=== PATIENT | male | born 1990 | race Caucasian/White ===

== ENCOUNTER 2020-03-07 11:18 | Observation (INO) | payer SELFPAY ==
[2020-03-07] VITALS (12 sets, daily range): BP systolic 138–157; BP diastolic 79–92; PULSE 62–90; RESP 12–24; TEMP 36.9; O2SAT 96–100; BMI 20.5
--- NOTE | 2020-03-07 11:26 | CT_ITS ---
WS: [id number] CT ABDOMEN AND PELVIS WITH AND WITHOUT CONTRAST HISTORY: Abdominal pain TECHNIQUE: Unenhanced 5 mm axial imaging first performed through the abdomen. Post contrast imaging t hrough the abdomen and pelvis. Oral contrast has not been provided. Sagittal and coronal reformats a re submitted. All CT scans at [facility] use at least one of these dose optimization tech niques: automated exposure control; mA and/or kV adjustment per patient size (includes targeted exams where dose is matched to clinical indication); or iterative reconstruction. CONTRAST: Omnipaque 300; 95 mL IV. DLP: 691.31 mGy.cm COMPARISON: None available. Lung bases are clear. Heart is normal size. No hiatal hernia. Mild hepatic steatosis and enlargement. No mass or bile duct dilatation. Normally distended gallbladd er. Pancreas is enlarged and edematous. Spleen is negative. No adrenal mass. Negative kidneys. Aorta is normal. There is a small amount of ascites within the abdomen. Ascites extends along the paracolic gutters wi th a small amount of fluid in the pelvis. There is also soft tissue infiltration throughout the mesen teric fat. There is no focal fluid collection or abscess. No GI tract obstruction. The appendix is pa rtially visualized but normal. No osseous abnormality. Benign bone islands in the pelvis and proximal femur. CT/CT abdomen pelvis wo/w [id number] IMPRESSION: 1. Acute pancreatitis without evidence for hemorrhagic pancreatitis or necrosi s. 2. Small amount of ascites and diffuse mesenteric edema. 3. No bile duct dilatation.
--- NOTE | 2020-03-07 11:34 | W.ED.ABDPA2 ---
HPI - Abdominal Pain General: Chief Complaint: Abdominal Pain Stated Complaint: SEVERE ABD PAIN Time Seen by Provider: 03/07/20 11:20 Source: patient Mode of arrival: EMS Limitations: no limitations History of Present Illness: HPI narrative: Myke is a nice 29-year-old male who comes in complaining of abdominal pain. Abdominal pain is been present for the past 3 days and worsening progressively for the throughout that time. He describes the pain is diffuse in nature but worse in the right lower quadrant. He has had associated nausea and vomiting but denies any hematic emesis or coffee-ground emesis. He denies diarrhea but states he has not had a bowel movement in these past 3 days. He has had a decreased appetite and a subjective fever at home. Any type of getting up and moving or exertion makes his symptoms worse. [facility] and the concern for appendicitis was present and he was referred here for a CT scan to better evaluate. Associated Symptoms: Reports fever(s) (Subjective), nausea and vomiting; Denies chills, coffee ground emesis, GI cramping, diarrhea, dysuria, heartburn, hematochezia, hematuria, hematemesis, melena and syncope Review of Systems Const: Reports: fever(s) (Subjective); Denies: chills, body aches, fatigue, malaise or diaphoresis Eyes: Denies: change in vision, blurry vision, blind spots, photophobia, eye discharge or eye redness ENMT: Denies: throat pain, odynophagia, hoarseness, swelling of lips/tongue, oral sores, ear or mastoid pain, ear discharge, change in hearing or nasal discharge Card: Denies: chest pain, palpitations, irregular heart rhythm, edema, lightheadedness, syncope, pre-syncope, dyspnea on exertion or orthopnea Resp: Denies: dyspnea, productive cough, non-productive cough, wheezing, hemoptysis or chest congestion GI: Reports: abdominal pain, nausea and vomiting; Denies: hematemesis, coffee ground emesis, heartburn, diarrhea, GI cramping, hematochezia or melena : Denies: flank pain, dysuria, urinary frequency, urinary urgency or hematuria Musc: Denies: neck pain, back pain, extremity pain, extremity swelling, joint pain, joint swelling, joint redness, joint warmth or joint stiffness Skin/Breast: Denies: rash, pruritus, erythema, skin tenderness or jaundice Neuro: Denies: headache(s), numbness in extremities, weakness in extremities, sensory changes, lack of coordination, difficulty walking, dizziness, vertigo, confusion, Slurred speech present or seizure-like activity Thony/Lymph: Denies: easy bruising, easy bleeding, petechiae, purpura or enlarged lymph nodes All/Imm: Denies: urticaria, throat swelling, tongue swelling, facial swelling or acute wheezing PFSH ED PFSH: Medical History (Updated 03/07/20 @ 15:42 by Callum Mallory MD) Acute abdominal pain No pertinent past medical history Surgical History (Updated 03/07/20 @ 15:41 by Callum Mallory MD) No pertinent past surgical history Family History (Updated 03/07/20 @ 15:41 by Callum Mallory MD) Other Lung disease Social History Smoking and tobacco status: current every day smoker Alcohol intake: never Physical Exam Const: COMMON NORMALS: no acute distress, patient oriented x3, no limitations, healthy appearing and well nourished GENERAL APPEARANCE: cooperative, well kempt and well developed HENMT: COMMON NORMALS: normocephalic, atraumatic, external ears normal, EAC's normal and Normal external nose present HEAD & SCALP: normal to inspection, normocephalic and atraumatic FACE & SINUS: normal facial exam and face symmetric NOSE: Normal external nose present and Normal nares present EXTERNAL EAR: Yes external ears normal EXTERNAL AUDITORY CANAL: EAC's normal MOUTH: Normal oral and palatal mucosa present, lip normal and tongue normal Eye: COMMON NORMALS: Equal, round and reactive pupils present and conjunctivae normal GENERAL EYE: appearance normal, both eyes and all related structures ALIGNMENT: Yes alignment normal PERIORBITAL: periorbital findings normal EYELID: eyelids normal CONJUNCTIVA: Yes conjunctivae normal SCLERA: sclerae normal PUPIL: Yes Equal, round and reactive pupils present Neck/C-Spine: COMMON NORMALS: full ROM, no lymphadenopathy, supple, no meningeal signs and no JVD GENERAL: Yes normal visual inspection and Yes trachea midline Chest: COMMONS NORMALS: normal inspection of the chest and normal palpation of entire chest wall Resp: COMMON NORMALS: normal respiratory effort, No retractions and No use of accessory muscles EFFORT & INSPECTION: Yes able to speak in complete sentences and Yes symmetric chest movement AUSCULTATION: no crackles, no rales, no rhonchi and no wheezes Cardio: COMMON NORMALS: no JVD, regular rate, regular rhythm, S1 normal heart sound present and S2 normal heart sound present RATE: regular rate RHYTHM: regular rhythm HEART SOUNDS: S1 normal heart sound present, S2 normal heart sound present, no click, no gallops, no murmurs, no rubs and abnormal split S2 GI: COMMON NORMALS: Soft to palpation and No hepatosplenomegaly present PALPATION: Yes Soft to palpation, Yes Tenderness to palpation present (GI) (Moderate diffusely), No Guarding due to palpation present (GI), No Rigid due to palpation, Yes No hepatosplenomegaly present, No Hernia present, No Palpable mass present and No Pulsatile mass present : COMMON NORMALS: Yes no CVA tenderness BLADDER/KIDNEY EXAM: Yes no CVA tenderness Back/Pelvis: COMMON NORMALS: no CVA tenderness, thoracic and lumbar spine normal to inspection, no thoracic nor lumbar tenderness and thoraco-lumbar ROM normal Extremity: COMMON NORMALS: normal to inspection, full ROM, capillary refill normal, no joint enlargement, no clubbing, cyanosis or edema and no calf tenderness Neuro: COMMON NORMALS: patient oriented x3, CN's II-XII intact bilaterally, moves all extremities, no focal motor deficits and no sensory deficits noted MENINGEAL SIGNS: Yes no meningeal signs SPEECH: speech normal Psych: COMMON NORMALS: mental status grossly normal, Normal thought process present, cooperative, normal affect, speech normal and activity/motor behavior normal APPEARANCE: Yes well kempt SPEECH: Yes normal speech THOUGHT PROCESS: Normal thought process present Skin: COMMON NORMALS: no rashes or lesions noted, turgor normal, no jaundice, no petechiae and no mottling GENERAL SKIN EXAM: no rashes or lesions noted and turgor normal Course Vital Signs: Vital signs: Vital Signs Temperature 98.4 F 03/07/20 15:18 Pulse Rate 62 03/07/20 15:18 Respiratory Rate 18 03/07/20 15:18 Blood Pressure 151/86 03/07/20 15:18 Pulse Oximetry 99 03/07/20 15:18 MDM - Abdominal Pain MDM Narrative: Medical decision making narrative: Mr. Haley is a 29-year-old male comes in complaining of diffuse abdominal pain. He has associated nausea vomiting and has been constipated. CT scan does not reveal a bowel obstruction or appendicitis but does reveal pancreatitis. There is a small amount of ascites present. I have reviewed the case in full with Dr. Frost and he is agreeable to admission. He understands I am adding on an ultrasound to definitively rule out a gallbladder cause and muscle adding on alcohol and coagulation studies. Lab Data: Attestation: I reviewed the patient's lab results. Labs: Lab Results 03/07/20 03/07/20 03/07/20 Range/Units 11:40 11:40 11:40 WBC 18.6 H (4.0-10.0) 10^3/ uL RBC 5.95 H (4.1-5.3) 10^6/u L Hgb 17.6 H (11.7-16.6) g/dL Hct 52.7 H (42.0-52.0) % MCV 88.6 (80-94) fL MCH 29.6 (28.0-34.0) pg MCHC 33.4 (30.0-36.0) g/dL RDW 13.1 (12.1-15.1) % Plt Count 331 (130-400) 10^3/c mm MPV 8.9 (7.4-10.4) fL Neut % (Auto) 84.3 % Lymph % (Auto) 6.2 % [place] % (Auto) 8.1 % Eos % (Auto) 0.9 % Baso % (Auto) 0.2 % Neut # (Auto) 15.7 H (1.8-7.7) 10^3/u L Lymph # (Auto) 1.2 (0.8-4.8) 10^3/u L [place] # (Auto) 1.5 H (0.2-0.9) 10^3/u L Eos # (Auto) 0.2 (0.0-0.8) 10^3/u L Baso # (Auto) 0.0 (0.0-0.1) 10^3/u L Nucleated RBC % (a uto) 0 % Nucleated RBCs # 0.0 /100WBC PT (10.5-13.3) SECO NDS INR (0.8-1.2) APTT (23.9-36.7) SECO NDS Sodium 133 L (136-145) mmol/L Potassium 3.5 (3.5-5.1) mmol/L Chloride 96 L (98-107) mmol/L Carbon Dioxide 24 (22-29) mmol/L Anion Gap 16.5 (5-19) BUN 14 (6-20) mg/dL Creatinine 0.7 (0.7-1.2) mg/dL GFR Calculation 133.3 H (90-130) mL/min Glucose 115 (65-115) mg/dL Estimat Average Gl ucose Hemoglobin A1c (4.0-6.0) % Calculated Osmolal ity 273 L (285-295) mOsm/k g Lactic Acid (0.5-2.2) mmol/L Calcium 9.9 (8.5-10.5) mg/dL Magnesium 1.6 L (1.7-2.3) mg/dL Total Bilirubin 1.0 (0.15-1.2) mg/dL AST 99 H (0-40) U/L ALT 174 H (0-41) U/L Alkaline Phosphata se 86 (40-130) IU/L Total Protein 6.7 (6.6-8.7) g/dL Albumin 4.3 (3.5-5.2) g/dL Globulin 2.4 (1.3-4.6) g/dL Lipase 1185 H (13-60) U/L Urine Color (Yellow) Urine Appearance (CLEAR) Urine pH (5-7) Ur Specific Gravit y (1.005-1.030) Urine Protein (Negative) Urine Glucose (UA) (Normal) Urine Ketones (Negative) Urine Blood (Negative) Urine Nitrate (Negative) Urine Bilirubin (NEGATIVE) Urine Urobilinogen (Negative) mg/dL Ur Leukocyte Anastasiya ase (Negative) Urine RBC (0-2) /hpf Urine WBC (0-5) /hpf Ur Squamous Epith Cells (0-5) Urine Bacteria (NONE) Urine Mucus Urine Opiates Scre en (Negative) ng/mL Ur Barbiturates Sc reen (Negative) ng/mL Ur Phencyclidine S crn (Negative) ng/mL Ur Amphetamines Sc reen (Negative) ng/mL U Benzodiazepines Scrn (Negative) ng/mL Urine Cocaine Scre en (Negative) ng/mL U Marijuana (THC) Screen (Negative) ng/mL Ethyl Alcohol < 10 (0-10) mg/dL 03/07/20 03/07/20 03/07/20 Range/Units 11:40 11:40 11:50 WBC (4.0-10.0) 10^3/ uL RBC (4.1-5.3) 10^6/u L Hgb (11.7-16.6) g/dL Hct (42.0-52.0) % MCV (80-94) fL MCH (28.0-34.0) pg MCHC (30.0-36.0) g/dL RDW (12.1-15.1) % Plt Count (130-400) 10^3/c mm MPV (7.4-10.4) fL Neut % (Auto) % Lymph % (Auto) % [place] % (Auto) % Eos % (Auto) % Baso % (Auto) % Neut # (Auto) (1.8-7.7) 10^3/u L Lymph # (Auto) (0.8-4.8) 10^3/u L [place] # (Auto) (0.2-0.9) 10^3/u L Eos # (Auto) (0.0-0.8) 10^3/u L Baso # (Auto) (0.0-0.1) 10^3/u L Nucleated RBC % (a uto) % Nucleated RBCs # /100WBC PT 13.60 H (10.5-13.3) SECO NDS INR 1.01 (0.8-1.2) APTT 32.8 (23.9-36.7) SECO NDS Sodium (136-145) mmol/L Potassium (3.5-5.1) mmol/L Chloride (98-107) mmol/L Carbon Dioxide (22-29) mmol/L Anion Gap (5-19) BUN (6-20) mg/dL Creatinine (0.7-1.2) mg/dL GFR Calculation (90-130) mL/min Glucose (65-115) mg/dL Estimat Average Gl ucose 97 Hemoglobin A1c 5.0 (4.0-6.0) % Calculated Osmolal ity (285-295) mOsm/k g Lactic Acid (0.5-2.2) mmol/L Calcium (8.5-10.5) mg/dL Magnesium (1.7-2.3) mg/dL Total Bilirubin (0.15-1.2) mg/dL AST (0-40) U/L ALT (0-41) U/L Alkaline Phosphata se (40-130) IU/L Total Protein (6.6-8.7) g/dL Albumin (3.5-5.2) g/dL Globulin (1.3-4.6) g/dL Lipase (13-60) U/L Urine Color Dark yellow (Yellow) Urine Appearance Clear (CLEAR) Urine pH 7 (5-7) Ur Specific Gravit y 1.005 (1.005-1.030) Urine Protein Trace (Negative) Urine Glucose (UA) Norm (Normal) Urine Ketones Negative (Negative) Urine Blood 3+ H (Negative) Urine Nitrate Negative (Negative) Urine Bilirubin 1+ H (NEGATIVE) Urine Urobilinogen Norm (Negative) mg/dL Ur Leukocyte Anastasiya ase Negative (Negative) Urine RBC 25-40 H (0-2) /hpf Urine WBC 0-4 H (0-5) /hpf Ur Squamous Epith Cells 0-4 H (0-5) Urine Bacteria 2+ H (NONE) Urine Mucus 2+ Urine Opiates Scre en (Negative) ng/mL Ur Barbiturates Sc reen (Negative) ng/mL Ur Phencyclidine S crn (Negative) ng/mL Ur Amphetamines Sc reen (Negative) ng/mL U Benzodiazepines Scrn (Negative) ng/mL Urine Cocaine Scre en (Negative) ng/mL U Marijuana (THC) Screen (Negative) ng/mL Ethyl Alcohol (0-10) mg/dL 03/07/20 03/07/20 Range/Units 11:50 12:10 WBC (4.0-10.0) 10^3/ uL RBC (4.1-5.3) 10^6/u L Hgb (11.7-16.6) g/dL Hct (42.0-52.0) % MCV (80-94) fL MCH (28.0-34.0) pg MCHC (30.0-36.0) g/dL RDW (12.1-15.1) % Plt Count (130-400) 10^3/c mm MPV (7.4-10.4) fL Neut % (Auto) % Lymph % (Auto) % [place] % (Auto) % Eos % (Auto) % Baso % (Auto) % Neut # (Auto) (1.8-7.7) 10^3/u L Lymph # (Auto) (0.8-4.8) 10^3/u L [place] # (Auto) (0.2-0.9) 10^3/u L Eos # (Auto) (0.0-0.8) 10^3/u L Baso # (Auto) (0.0-0.1) 10^3/u L Nucleated RBC % (a uto) % Nucleated RBCs # /100WBC PT (10.5-13.3) SECO NDS INR (0.8-1.2) APTT (23.9-36.7) SECO NDS Sodium (136-145) mmol/L Potassium (3.5-5.1) mmol/L Chloride (98-107) mmol/L Carbon Dioxide (22-29) mmol/L Anion Gap (5-19) BUN (6-20) mg/dL Creatinine (0.7-1.2) mg/dL GFR Calculation (90-130) mL/min Glucose (65-115) mg/dL Estimat Average Gl ucose Hemoglobin A1c (4.0-6.0) % Calculated Osmolal ity (285-295) mOsm/k g Lactic Acid 0.9 (0.5-2.2) mmol/L Calcium (8.5-10.5) mg/dL Magnesium (1.7-2.3) mg/dL Total Bilirubin (0.15-1.2) mg/dL AST (0-40) U/L ALT (0-41) U/L Alkaline Phosphata se (40-130) IU/L Total Protein (6.6-8.7) g/dL Albumin (3.5-5.2) g/dL Globulin (1.3-4.6) g/dL Lipase (13-60) U/L Urine Color (Yellow) Urine Appearance (CLEAR) Urine pH (5-7) Ur Specific Gravit y (1.005-1.030) Urine Protein (Negative) Urine Glucose (UA) (Normal) Urine Ketones (Negative) Urine Blood (Negative) Urine Nitrate (Negative) Urine Bilirubin (NEGATIVE) Urine Urobilinogen (Negative) mg/dL Ur Leukocyte Anastasiya ase (Negative) Urine RBC (0-2) /hpf Urine WBC (0-5) /hpf Ur Squamous Epith Cells (0-5) Urine Bacteria (NONE) Urine Mucus Urine Opiates Scre en Negative (Negative) ng/mL Ur Barbiturates Sc reen Negative (Negative) ng/mL Ur Phencyclidine S crn Negative (Negative) ng/mL Ur Amphetamines Sc reen Negative (Negative) ng/mL U Benzodiazepines Scrn Negative (Negative) ng/mL Urine Cocaine Scre en Negative (Negative) ng/mL U Marijuana (THC) Screen Positive H (Negative) ng/mL Ethyl Alcohol (0-10) mg/dL Imaging Data ^: CT Abd/Pel: Radiologist's impression: [place] [address] CT Scan Report Signed Patient: Myke Pena Unit #: [id number] : 1990 Age/Sex: 29 / M ADM Date: 03/07/20 Loc: ER Room/Bed: Attending Dr: Ordering Provider/Ordering MD: Lia Mercedes DO Date of Service: 03/07/20 Procedure(s): CT abdomen pelvis wo/w [id number] Accession Number(s): [id number] Report Number: [id number] WS: [id number] CT ABDOMEN AND PELVIS WITH AND WITHOUT CONTRAST HISTORY: Abdominal pain TECHNIQUE: Unenhanced 5 mm axial imaging first performed through the abdomen. Post contrast imaging through the abdomen and pelvis. Oral contrast has not been provided. Sagittal and coronal reformats are submitted. All CT scans at [facility] use at least one of these dose optimization techniques: automated exposure control; mA and/or kV adjustment per patient size (includes targeted exams where dose is matched to clinical indication); or iterative reconstruction. CONTRAST: Omnipaque 300; 95 mL IV. DLP: 691.31 mGy.cm COMPARISON: None available. Lung bases are clear. Heart is normal size. No hiatal hernia. Mild hepatic steatosis and enlargement. No mass or bile duct dilatation. Normally distended gallbladder. Pancreas is enlarged and edematous. Spleen is negative. No adrenal mass. Negative kidneys. Aorta is normal. There is a small amount of ascites within the abdomen. Ascites extends along the paracolic gutters with a small amount of fluid in the pelvis. There is also soft tissue infiltration throughout the mesenteric fat. There is no focal fluid collection or abscess. No GI tract obstruction. The appendix is partially visualized but normal. No osseous abnormality. Benign bone islands in the pelvis and proximal femur. CT/CT abdomen pelvis wo/w [id number] IMPRESSION: 1. Acute pancreatitis without evidence for hemorrhagic pancreatitis or necrosis. 2. Small amount of ascites and diffuse mesenteric edema. 3. No bile duct dilatation. Dictated By: Anna Marie Jeronimo DO Signed By: Anna Marie Jeronimo DO Signed Date/Time: 03/07/20 1323 DD/ 1317 Discharge Plan Discharge Patient Disposition: Placed in Observation Admit Provider: Callum Mallory Clinical Impression: Pancreatitis Qualifiers: Chronicity: acute Pancreatitis type: alcohol induced Acute pancreatitis complication: no infection or necrosis Qualified Code(s): K85.20 - Alcohol induced acute pancreatitis without necrosis or infection Condition: Stable Discharge Date/Time: 03/07/20 14:46 Coding Level of Care Code ED [employer] Coach for Chg Fwd Exam Comprehensive
[2020-03-07] MEDS: sodium chloride 0.9% 1,000 ML 100 ML IV ×2 (11:41→15:43)
[2020-03-07] MEDS: HYDROmorphone 1 mg/mL INJ 1 mL 0.5 MG IVP (11:41)
[2020-03-07] MEDS: ondansetron 2 mg/ML SDV 2 mL 4 MG IVP (11:41)
[2020-03-07 11:55] LABS: Basophils % 0.2 %; Eosinophils # 0.2 10^3/uL (0.0-0.8); Eosinophils % 0.9 %; Hematocrit 52.7 % (42.0-52.0); Hemoglobin 17.6 g/dL (11.7-16.6); Lymphocytes # 1.2 10^3/uL (0.8-4.8); Lymphocytes % 6.2 %; Mean Corpuscular HGB Conc 33.4 g/dL (30.0-36.0); Mean Corpuscular Hemoglobin 29.6 pg (28.0-34.0); Mean Corpuscular Volume 88.6 fL (80-94); Mean Platelet Volume 8.9 fL (7.4-10.4); Monocytes # 1.5 10^3/uL (0.2-0.9); Monocytes % 8.1 %; Neutrophils # 15.7 10^3/uL (1.8-7.7); Neutrophils % 84.3 %; Nucleated Red Blood Cells % 0 %; Platelet Count 331 10^3/cmm (130-400); Red Blood Count 5.95 10^6/uL (4.1-5.3); Red Cell Distribution Width 13.1 % (12.1-15.1); White Blood Count 18.6 10^3/uL (4.0-10.0)
[2020-03-07 12:11] LABS: Alanine Aminotransferase 174 U/L (0-41); Albumin Level 4.3 g/dL (3.5-5.2); Alkaline Phosphatase 86 IU/L (40-130); Anion Gap 16.5 (5-19); Aspartate Amino Transferase 99 U/L (0-40); Blood Urea Nitrogen 14 mg/dL (6-20); Calcium 9.9 mg/dL (8.5-10.5); Carbon Dioxide 24 mmol/L (22-29); Chloride 96 mmol/L (98-107); Globulin 2.4 g/dL (1.3-4.6); Glomerular Filtration Rate 133.3 mL/min (90-130); Glucose 115 mg/dL (65-115); Magnesium 1.6 mg/dL (1.7-2.3); Osmolality Calculated 273 mOsm/kg (285-295); Potassium 3.5 mmol/L (3.5-5.1); Sodium 133 mmol/L (136-145); Total Protein 6.7 g/dL (6.6-8.7)
[2020-03-07 12:14] LABS: Bilirubin Urine 1+ (NEGATIVE); Blood Urine 3+ (Negative); Glucose Urine UA Norm (Normal); Ketones Urine Negative (Negative); Leukocyte Esterase Urine Negative (Negative); Nitrate Urine Negative (Negative); Protein Urine Trace (Negative); Specific Gravity, Urine 1.005 (1.005-1.030); Urine Appearance Clear (CLEAR); Urine Color Dark Yellow (Yellow); Urobilinogen Urine Norm (Negative); pH Urine 7 (5-7)
[2020-03-07 12:15] LABS: Bacteria Urine 2+; RBC Urine 25-40 /hpf (0-2); Squamous Epithelial Cell Urine 0-4 (0-5); WBC Urine 0-4 /hpf (0-5)
[2020-03-07 12:16] LABS: Add Urine Culture? Yes; Mucus Urine 2+
[2020-03-07] MEDS: HYDROmorphone 1 mg/mL INJ 1 mL IVP ×2 (12:22→14:04)
[2020-03-07] MEDS: magnesium sulfate premix 2 GM/50 ML PIGGYBACK IV (12:23)
[2020-03-07 12:24] LABS: Lipase 1185 U/L (13-60)
[2020-03-07 12:29] LABS: Lactic Sepsis W/Reflex 0.9 mmol/L (0.5-2.2)
[2020-03-07] MEDS: iohexol 300 mg/mL 100 mL Btl IV (12:40)
--- NOTE | 2020-03-07 13:28 | US_ITS ---
WS: [id number] Complete ABDOMINAL ULTRASOUND HISTORY: Abdominal Pain COMPARISON: None available. Liver: 18.0 cm in length. Liver is slightly enlarged. Mild hepatic steatosis. No bile duct dilatation . Gallbladder: Normally distended with no gallstones, wall thickening or pericholecystic fluid. Gallbladder wall thickness: 0.2 cm. Pancreas: Mildly enlarged edematous pancreas. No adjacent fluid. CBD: 0.5 cm. Right kidney: 11.4 cm x 5.7 cm x 6. cm. No mass, cortical thickening or hydronephrosis. Left kidney: 10.6 cm x 5.2 cm x 0.7 cm. No mass, cortical thickening or hydronephrosis. Spleen: Normal size and echogenicity. Abdominal aorta and IVC are within normal limits. No ascites. US/US abdomen complete* [id number] IMPRESSION: 1. Mild hepatomegaly. 2. Negative gallbladder. 3. Mildly edematous enlarged pancreas.
[2020-03-07] MEDS: pantoprazole 40 mg SDV 80 MG IVP (14:04)
[2020-03-07 14:19] LABS: Amphetamines Screen Urine Negative (Negative); Barbiturates Screen Urine Negative (Negative); Benzodiazepines Screen Urine Negative (Negative); Cocaine Screen Urine Negative (Negative); Opiate Screen Urine Negative (Negative); PCP Screen Urine Negative (Negative); THC Screen Urine Positive (Negative)
[2020-03-07 14:26] LABS: Alcohol Level < 10 mg/dL (0-10)
[2020-03-07] MEDS: LORazepam 2 mg/mL INJ 1 mL 1 MG IVP (14:33)
[2020-03-07 15:09] LABS: INR 1.01 (0.8-1.2); Partial Thromboplastin Time 32.8 SECONDS (23.9-36.7)
--- NOTE | 2020-03-07 15:34 | PM.HP ---
Providers/Chief Complaint Admitting Physician: Callum Mallory MD Primary Care Provider: DOCTOR NOT ON FILE Chief Complaint: SEVERE ABD PAIN History of Present Illness Myke Pena is a 29 year old male with a past medical history of alcohol abuse, marijuana use who presents to [facility] due to complaints of abdominal pain. Patient states that starting on Thursday night he started to develop abdominal pain, the abdominal pain was primarily periumbilical and into the epigastrium, it also radiated to the right lower quadrant, associate with nausea, vomiting, no fevers, no chills. Patient symptoms progressively got worse over the next 24 hours, and pain he stated was more now in the epigastrium in the right upper quadrant, also going to his back, had poor appetite, nausea, vomiting. This morning he was able to keep down liquids and grapes. He presented to his primary care physician's office who was concerned for appendicitis so he was sent [facility] for further evaluation. Here at [facility], he had a CT scan of his abdomen which showed evidence of acute appendicitis, lipase was 1185, AST 99, ALT 174, lactic acid 0.9 white blood cell count 18.6, patient admitted to drinking up to 6 tall boys 19 ounce alcoholic drinks at 1 time. Last alcohol drink was Thursday night. Denies IV drug use. Does admit to smoking cigarettes, using marijuana. Denies history of gallstones. Denies right upper quadrant pain with fatty meals. Denies history of steroids. Denies a family history of pancreatitis. Denies any axww-mjr-aljlcbr drugs use. Review of Systems Const: Denies: fever(s), chills, fatigue or malaise Eyes: Denies: change in vision or blurry vision ENMT: Denies: nasal congestion Card: Denies: chest pain or palpitations Resp: Denies: dyspnea, productive cough, non-productive cough or wheezing GI: Reports: abdominal pain, nausea and vomiting; Denies: hematemesis, diarrhea, constipation, hematochezia or melena : Denies: flank pain, difficulty urinating, dysuria or urinary frequency Musc: Denies: neck pain or back pain Skin/Breast: Denies: rash Neuro: Denies: headache(s), dizziness or vertigo Psych: Denies: anxiety or depression Endo: Denies: polyuria or polydipsia Medications/Allergies Home Medications Medication Instructions Recorded Confirmed Last Taken Type Fish Oil 1 cap PO DAILY 03/07/20 03/07/20 Unknown History Minnie Vitamins 1 tab PO DAILY 03/07/20 03/07/20 Unknown History Vitamin B-12 1 tab PO DAILY 03/07/20 03/07/20 Unknown History Vitamin C 1 tab PO DAILY 03/07/20 03/07/20 Unknown History ibuprofen 200 mg tablet 400 mg PO PRN tab 03/07/20 03/07/20 Unknown History Allergies Allergy/AdvReac Type Severity Reaction Status Date / Time No Known Allergies Allergy Verified 03/07/20 12:08 PFSH Acute PFSH: Medical History (Updated 03/07/20 @ 15:42 by Callum Mallory MD) Acute abdominal pain No pertinent past medical history Surgical History (Updated 03/07/20 @ 15:41 by Callum Mallory MD) No pertinent past surgical history Family History (Updated 03/07/20 @ 15:41 by Callum Mallory MD) Other Lung disease Social History Smoking and tobacco status: current every day smoker Alcohol intake: never Vitals/I&O/Wt Last Vital Signs Temp 98.4 F 03/07/20 15:18 Pulse 62 03/07/20 15:18 Resp 18 03/07/20 15:18 BP 151/86 03/07/20 15:18 Pulse Ox 99 03/07/20 15:18 03/07/20 03/07/20 03/07/20 06:59 14:59 22:59 Intake Total 50 / 50 Balance 50 / 50 Weight last 48 hrs Weight 66.678 kg Physical Exam Const: COMMON NORMALS: no acute distress and patient oriented x3 GENERAL APPEARANCE: cooperative and comfortable HENMT: COMMON NORMALS: normocephalic HEAD & SCALP: normocephalic Eye: COMMON NORMALS: Equal, round and reactive pupils present, EOMs intact bilaterally and no papilledema GENERAL EYE: appearance normal, both eyes and all related structures PUPIL: Yes Equal, round and reactive pupils present DIRECT OPHTHALMOSCOPY: Yes no papilledema Neck/C-Spine: COMMON NORMALS: full ROM, no lymphadenopathy, no JVD and Thyroid normal THYROID: Thyroid normal Lymph: LYMPHATIC: no lymphadenopathy noted Resp: COMMON NORMALS: normal respiratory effort, No retractions, No use of accessory muscles and clear to auscultation bilaterally AUSCULTATION: clear to auscultation bilaterally Cardio: COMMON NORMALS: no JVD, regular rate, regular rhythm, S1 normal heart sound present, S2 normal heart sound present, No gallops present (Cardio), No clicks present (Cardio) and No murmurs present (Cardio) RATE: regular rate RHYTHM: regular rhythm HEART SOUNDS: S1 normal heart sound present and S2 normal heart sound present GI: COMMON NORMALS: Normal to inspection, nondistended, normoactive bowel sounds present, Soft to palpation, non-tender and No hepatosplenomegaly present PALPATION: Yes Soft to palpation, Yes Tenderness to palpation present (GI) Details: RUQ, No Guarding due to palpation present (GI), No Rigid due to palpation and Yes No hepatosplenomegaly present Extremity: COMMON NORMALS: normal to inspection, full ROM and no pedal edema Neuro: COMMON NORMALS: patient oriented x3, CN's II-XII intact bilaterally, moves all extremities and no focal motor deficits Psych: COMMON NORMALS: mental status grossly normal, Normal thought process present and cooperative THOUGHT PROCESS: Normal thought process present Data : 03/07/20 11:40 03/07/20 11:40 A&P Assessment and plan (1) Pancreatitis: -CT abdomen Mild hepatic steatosis and enlargement. No mass or bile duct dilatation. Normally distended gallbladder. Pancreas is enlarged and edematous. Spleen is negative. No adrenal mass. Negative kidneys. Aorta is normal. There is a small amount of ascites within the abdomen. Ascites extends along the paracolic gutters with a small amount of fluid in the pelvis. There is also soft tissue infiltration throughout the mesenteric fat. There is no focal fluid collection or abscess. No GI tract obstruction. The appendix is partially visualized but normal. -Lipase 1185 Plan: -Continue clear liquid diet -IV hydration hydration -Pain control, nausea control Status: Acute Qualifiers: Acute pancreatitis complication: no infection or necrosis Chronicity: acute Pancreatitis type: alcohol induced Qualified Code(s): K85.20 - Alcohol induced acute pancreatitis without necrosis or infection (2) Transaminitis: -AST 99, ALT 174 -Follow right upper quadrant ultrasound -Alcohol levels within normal limits, last alcohol drink was on Thursday -Likely alcohol-related Status: Acute (3) Hematuria: -3+ blood, 25-40 RBCs in urine, CT scan abdomen no significant renal pathology -Renal ultrasound -Repeat UA tomorrow Status: Acute (4) Leukocytosis: -Likely associate with pancreatitis, continue to monitor Status: Acute (5) Alcohol abuse: -[facility] protocol -Advised to abstain from alcohol consumption Status: Acute Attestations Medical Necessity Statement*: Patient requires hospitalization, outpatient with observation, for acute pancreatitis Coding Level of Care Code Acute Elementary Art Teacher for [facility] Diagnoses Pancreatitis K85.20 Acute pancreatitis complication: no infection or necrosis Chronicity: acute Pancreatitis type: alcohol induced Transaminitis R74.0 Hematuria R31.9 Leukocytosis D72.829 Alcohol abuse F10.10
[2020-03-07] MEDS: enoxaparin 40 mg/0.4 mL Syringe SUBCUT (15:43)
[2020-03-07 16:07] LABS: Estmated Average Glucose 97
[2020-03-07] MEDS: morphine 4 mg/mL SDV 1 mL 2 MG IVP (21:21)
[2020-03-08] VITALS (7 sets, daily range): BP systolic 135–154; BP diastolic 70–93; PULSE 64–79; RESP 18; TEMP 36.9–37.2; O2SAT 97–99
[2020-03-08] MEDS: morphine 4 mg/mL SDV 1 mL 2 MG IVP ×2 (02:14→07:54)
[2020-03-08] MEDS: trazodone 50 mg Tablet 25 MG PO (03:05)
[2020-03-08] MEDS: sodium chloride 0.9% 1,000 ML 100 ML IV (03:53)
[2020-03-08 05:32] LABS: Basophils % 0.3 %; Eosinophils # 0.6 10^3/uL (0.0-0.8); Eosinophils % 5.1 %; Hematocrit 48.4 % (42.0-52.0); Hemoglobin 15.7 g/dL (11.7-16.6); Lymphocytes # 1.3 10^3/uL (0.8-4.8); Lymphocytes % 11.4 %; Mean Corpuscular HGB Conc 32.4 g/dL (30.0-36.0); Mean Corpuscular Hemoglobin 29.5 pg (28.0-34.0); Mean Platelet Volume 9.1 fL (7.4-10.4); Monocytes # 1.3 10^3/uL (0.2-0.9); Monocytes % 11.5 %; Neutrophils # 8.3 10^3/uL (1.8-7.7); Neutrophils % 71.4 %; Nucleated Red Blood Cells % 0 %; Platelet Count 269 10^3/cmm (130-400); Red Blood Count 5.32 10^6/uL (4.1-5.3); Red Cell Distribution Width 13.3 % (12.1-15.1); White Blood Count 11.6 10^3/uL (4.0-10.0)
[2020-03-08 05:40] LABS: Partial Thromboplastin Time 34.9 SECONDS (23.9-36.7)
[2020-03-08 05:46] LABS: Magnesium 1.9 mg/dL (1.7-2.3); Phosphorus 2.9 mg/dL (2.5-4.5)
[2020-03-08 05:52] LABS: Alanine Aminotransferase 129 U/L (0-41); Albumin Level 3.2 g/dL (3.5-5.2); Alkaline Phosphatase 81 IU/L (40-130); Anion Gap 14.8 (5-19); Aspartate Amino Transferase 68 U/L (0-40); Blood Urea Nitrogen 8 mg/dL (6-20); Calcium 8.7 mg/dL (8.5-10.5); Carbon Dioxide 25 mmol/L (22-29); Chloride 98 mmol/L (98-107); Glomerular Filtration Rate 159.3 mL/min (90-130); Glucose 96 mg/dL (65-115); Osmolality Calculated 274 mOsm/kg (285-295); Potassium 3.8 mmol/L (3.5-5.1); Sodium 134 mmol/L (136-145); Total Bilirubin 0.8 mg/dL (0.15-1.2); Total Protein 6.2 g/dL (6.6-8.7)
--- NOTE | 2020-03-08 10:42 | PC.CHAP ---
Pastoral Care Encounter/Spiritual Assessment Type of Contact [] Declined supervisor powdered sugar visit [] Patient/Family/Request visit [] Outpatient visit [] Follow-up visit [] Physician referral [] Code/Alert [x] Routine visit [] Staff referral [] Actively dying [] Patient sleeping [] Family support [] [] Out of room [] Palliative care [] [] Receiving care in room [] Pre-surgical visit [] Trauma [] Long length of stay [] ICU visit [] Other: Relational/Emotional Strength [x] Patient feels connected with others/family/visitors/staff [] Distress [] Loneliness/isolation [] Abandonment Spirituality of Patient [] Person of Saida [] Attends [employer]aritan of their Saida [] Believes in Prayer [] Reads Bible or Mormon materials [x] There are Spiritual issues to be addressed Game Developer Interventions [x] Prayer [x] Active listening [x] Non-anxious presence x[] Spiritual/emotional support [] Crisis/trauma care [] Spiritual counseling [] Bereavement support [] Provided bereavement packet [] Provided Bible/devotional materials [] Provided toy/stuffed animal, coloring book to patient or family member [] Provided Communion [] Anointing/Lena [] Salvation [x] Completed spiritual assessment [] Other: Impact on Illness or Injury [] Angry [] Fearful [] Anxious [] Often cries [] Exhaustion [] Unable to work [] Unable to attend judaism [] Unable to walk/stand [] Unable to read [] Unable to drive [] Unable to eat/drink [] Unable to sleep [] Unable to be with family [] Patient intubated [x] Other: Summary Patient is secular with a human saida based understanding. The Gospel of Cain Garcia was shared and prayer provided. Time spent with patient 15 minutes
--- NOTE | 2020-03-08 14:30 | PM.DCS ---
Discharge Providers Date of Admission: 03/07/20 13:41 Date of Discharge: March 08, 2020 Attending Provider at Admission: Callum Mallory MD Attending Provider at Discharge: Callum Mallory MD Primary Care Provider: DOCTOR NOT ON FILE Diagnoses at Discharge Discharge Diagnosis (1) Pancreatitis: Status: Acute Qualifiers: Acute pancreatitis complication: no infection or necrosis Chronicity: acute Pancreatitis type: alcohol induced Qualified Code(s): K85.20 - Alcohol induced acute pancreatitis without necrosis or infection (2) Transaminitis: Status: Acute (3) Hematuria: Status: Acute (4) Leukocytosis: Status: Acute (5) Alcohol abuse: Status: Acute Reason for Visit Reason for Visit: SEVERE ABD PAIN Hospital Course Hospital Course: this is a 29-year-old male with a past medical history of alcohol abuse, marijuana use who presents [facility] due to complaints of abdominal pain Patient was admitted to [facility], general medical floors for alcoholic pancreatitis, white blood cell count was 18.6, CRP 80, lipase 1185, CT abdomen showed pancreas is enlarged and edematous, patient was kept n.p.o., received IV fluids, IV hydration. Over the next few hours, he was put on a clear liquid diet, but his abdominal pain returned, he was adamant about continuing his diet, so he was kept clear liquid for the next few hours. In the morning patient had 2 bowel movements, but continued to have significant abdominal pain, abdominal pain with palpation above the pancreas, and intolerance to clear liquid diet. So I transitioned him to n.p.o. patient was Irritable, stated that he thought he had abdominal pain because he was hungry. Over the next few hours, patient kept complaining that he felt better and he would like to try something more substantial. I compromised with the patient and put him on a full liquid diet, still had episodes of abdominal pain with full liquid diet. I advised patient that he will need to be kept n.p.o., slow diet advancement based on his clinical progress, continuing IV fluids, continue IV nausea control, IV pain control. Patient stated that he wanted to leave AGAINST MEDICAL ADVICE, his family members have not had a good experience at [facility], he has not had a good experience [facility], he thinks he will have better luck in [place]. I apologized to the patient, but advised him that he has pancreatitis, has not been able to tolerate a liquid diet, the goal is to allow the acute inflammation of the pancreas to settle down, and slowly advance his diet, taking care of his dehydration, pain control, nausea control. However patient wanted to leave AGAINST MEDICAL ADVICE. Advised him the risks of leaving AGAINST MEDICAL ADVICE, risk including but not limited to significant morbidity, significant mortality, worsening pancreatitis, pancreatic necrosis, pancreatic cyst, pancreatic abscess, sepsis, septic shock, risk of , risk of dehydration. Patient voiced understanding, all questions answered, accepted the risks, left AGAINST MEDICAL ADVICE. I advised patient to abstain from alcohol drinking. In addition patient UA was positive for blood, positive RBCs, CT scan did not show any significant renal abnormalities, renal ultrasound did not show any significant renal abnormalities, patient needs to follow-up with his primary care provider with a repeat UA in a few weeks. Physical Exam Const: COMMON NORMALS: no acute distress Resp: COMMON NORMALS: normal respiratory effort Cardio: COMMON NORMALS: regular rate, regular rhythm, S1 normal heart sound present and S2 normal heart sound present RATE: regular rate RHYTHM: regular rhythm HEART SOUNDS: S1 normal heart sound present and S2 normal heart sound present GI: COMMON NORMALS: Soft to palpation and No hepatosplenomegaly present INSPECTION: Yes normal to inspection AUSCULTATION: Yes normoactive bowel sounds PALPATION: Yes Soft to palpation, Yes Tenderness to palpation present (GI) Details: RUQ, No Guarding due to palpation present (GI), No Rigid due to palpation and Yes No hepatosplenomegaly present PERCUSSION: normal to percussion Discharge Data Data Completed and Pending: Completed Studies During Hospitalization Category Date Time Status CT abdomen pelvis wo/w [id number] Stat Cat Scan 03/07/20 11:26 Completed US abdomen comple te* [id number] Urgent Ultrasound 03/07/20 13:28 Completed Pending at discharge Category Date Time Status C Reactive Protei n AM LABS Lab 03/09/20 04:00 Ordered C Reactive Protei n AM LABS Lab 03/10/20 04:00 Ordered Magnesium AM LABS Lab 03/09/20 04:00 Ordered Magnesium AM LABS Lab 03/10/20 04:00 Ordered Phosphorus AM LAB S Lab 03/09/20 04:00 Ordered Phosphorus AM LAB S Lab 03/10/20 04:00 Ordered Urine Culture Sta t Lab 03/07/20 11:50 Results Labs from last 24 hours 03/08/20 03/08/20 03/08/20 04:53 04:53 04:53 WBC RBC Hgb Hct MCV MCH MCHC RDW Plt Count MPV Neut % (Auto) Lymph % (Auto) Fleming % (Auto) Eos % (Auto) Baso % (Auto) Neut # (Auto) Lymph # (Auto) Fleming # (Auto) Eos # (Auto) Baso # (Auto) Nucleated RBC % (a uto) Nucleated RBCs # PT INR APTT 34.9 Sodium 134 L Potassium 3.8 Chloride 98 Carbon Dioxide 25 Anion Gap 14.8 BUN 8 Creatinine 0.6 L GFR Calculation 159.3 H Glucose 96 Estimat Average Gl ucose Hemoglobin A1c Calculated Osmolal ity 274 L Calcium 8.7 Phosphorus 2.9 Magnesium 1.9 Total Bilirubin 0.8 AST 68 H ALT 129 H Alkaline Phosphata se 81 C-Reactive Protein 80.0 H Total Protein 6.2 L Albumin 3.2 L Globulin 3.0 03/08/20 03/07/20 03/07/20 04:53 11:40 11:40 WBC 11.6 H RBC 5.32 H Hgb 15.7 Hct 48.4 MCV 91.0 MCH 29.5 MCHC 32.4 RDW 13.3 Plt Count 269 MPV 9.1 Neut % (Auto) 71.4 Lymph % (Auto) 11.4 Fleming % (Auto) 11.5 Eos % (Auto) 5.1 Baso % (Auto) 0.3 Neut # (Auto) 8.3 H Lymph # (Auto) 1.3 Fleming # (Auto) 1.3 H Eos # (Auto) 0.6 Baso # (Auto) 0.0 Nucleated RBC % (a uto) 0 Nucleated RBCs # 0.0 PT 13.60 H INR 1.01 APTT 32.8 Sodium Potassium Chloride Carbon Dioxide Anion Gap BUN Creatinine GFR Calculation Glucose Estimat Average Gl ucose 97 Hemoglobin A1c 5.0 Calculated Osmolal ity Calcium Phosphorus Magnesium Total Bilirubin AST ALT Alkaline Phosphata se C-Reactive Protein Total Protein Albumin Globulin Vitals: Last Vital Signs Temp 98.6 F 03/08/20 11:11 Pulse 72 03/08/20 11:11 Resp 18 03/08/20 11:11 BP 154/82 03/08/20 11:11 Pulse Ox 99 03/08/20 11:11 Discharge Plan Discharge Patient Disposition: Left Against Medical Advice Condition: Stable Prescriptions: No Action ibuprofen 200 mg tablet 400 mg PO PRN RF: 0 Fish Oil 1 cap PO DAILY RF: 0 Minnie Vitamins 1 tab PO DAILY RF: 0 Vitamin B-12 1 tab PO DAILY RF: 0 Vitamin C 1 tab PO DAILY RF: 0 Discharge Attestations Time Spent in Discharge Care*: less than 30 min Quality Metrics Clinical Quality Measures During this hospital stay, did patient experience: None Coding Level of Care Code Acute Clinical Informatics Specialist for [employer] Diagnoses Pancreatitis K85.20 Acute pancreatitis complication: no infection or necrosis Chronicity: acute Pancreatitis type: alcohol induced Transaminitis R74.0 Hematuria R31.9 Leukocytosis D72.829 Alcohol abuse F10.10
--- NOTE | 2020-03-09 13:44 | PC.RESP ---
Smoking Cessation information and a schedule of classes to patient.
== END 2020-03-08 14:15 | disposition left against medical advice (07) ==
LOC: ER 13:50 → MEDSURG 13:53
PROVIDERS: Admitting Provider Family Medicine; Emergency Provider Emergency Medicine; Visit Provider Family Medicine
DX: K85.20 Alcohol induced acute pancreatitis without necrosis or infection (principal); R74.0 Nonspecific elevation of levels of transaminase and lactic acid dehydrogenase [LDH]; R31.9 Hematuria, unspecified; D72.829 Elevated white blood cell count, unspecified; F10.10 Alcohol abuse, uncomplicated; Y90.0 Blood alcohol level of less than 20 mg/100 ml; F12.90 Cannabis use, unspecified, uncomplicated; F17.210 Nicotine dependence, cigarettes, uncomplicated
CPT/HCPCS: 12345; 36415; 74178; 76700; 80053; 80306; 80307; 81001; 83036; 83605; 83690; 83735; 84100; 85025; 85610; 85730; 86140; 87086; 96361; 96365; 96372; 96375; 96376; 99283; 99285; C9113; G0378; J1170; J1650; J2060; J2270; J2405; J3411; J3475; J7030; Q9967